=== PATIENT | female | born 1990 | race Caucasian/White ===

== ENCOUNTER 2022-01-19 17:20 | Emergency (ER) | payer OTHER, SELFPAY ==
[2022-01-19 17:21] VITALS: BP 129/90; PULSE 110; RESP 16; TEMP 36.8; O2SAT 97; BMI 26.8
[2022-01-19] MEDS: LORazepam 1 MG Tablet 2 MG PO (18:21)
--- NOTE | 2022-01-19 18:23 | EDS_ITS ---
HPI History of Present Illness Chief Complaint: Anxiety Informant: patient Narrative Narrative: Patient states she has been having worsening anxiety over the last month or so. She has a history of anxiety but is no longer on any medications. She states if she starts thinking about something too much or is under stress the anxiety really increases. She was at work today and it just got too much. 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 She has a primary physician but has not yet made contact to be seen. She does not have a counselor or psychiatrist now. She is not suicidal or homicidal. When the symptoms are bad she feels like she is smothering. No recent travel, surgery, immobilization, personal or family history of DVT or PE. No pleuritic pain. [facility] Medical History Anxiety Home Medications hydroxyzine pamoate 25 mg capsule 50 mg PO TID PRN PRN Anxiety #30 caps 01/19/22 [Rx Last Taken Unknown] Allergy/AdvReac Type Severity Reaction Status Date / Time No Known Allergies Allergy Verified 01/19/22 17:21 Social History Smoking Status: Unknown if ever smoked ROS ROS ED Constitutional Constitutional ED: Denies fever(s) or subjective Eyes Eyes: Denies blurry vision, change in vision or diplopia ENT ENT ED: Denies rhinorrhea Cardiovascular Cardiovascular: Reports palpitations; Denies chest pain or racing heartbeat Respiratory/Chest Respiratory/Chest: Reports other Details: Smothering feeling at times. ; Denies cough Gastrointestinal Gastrointestinal: Denies nausea or vomiting Genitourinary Genitourinary ED: Denies dysuria Musculoskeletal Musculoskeletal: Denies arthralgias or myalgias Integumentary Denies rash Neurologic Neurologic: Denies headache(s) or paresthesias Psychiatric Psychiatric: Reports anxiety; Denies suicidal ideation or suicidal thoughts Endocrine Endocrinology: Denies polydipsia or polyuria Hematologic/Lymphatic Hematologic/Lymphatic: Denies anemia Allergic/Immunologic Allergic/Immunologic ED: Denies urticaria EXAM Physical Exam Const Vital Signs: 01/19/22 17:21 Temperature 98.3 F Temperature Source Temporal Pulse Rate 110 H Respiratory Rate 16 Blood Pressure 129/90 H Blood Pressure Mean 103 Pulse Ox 97 Oxygen Delivery Method Room Air Positive well nourished and well developed Constitutional Narrative: Patient is pulled her self into a bit of a ball. She is sitting with the legs and knees pulled up. She is tearful. But she is very cooperative. General Appearance ED: well developed HEENT Reports moist mucous membranes Eyes PERRL and EOMs intact bilaterally Chest Wall inspection of chest normal Resp normal respiratory effort and clear to auscultation bilaterally Cardio regular rate and regular rhythm Rate: Negative for bradycardia or tachycardic GI normal to inspection, nondistended, normoactive bowel sounds, non-tender and non-distended Palpation: soft Back/Spine no CVA tenderness Extremity normal to inspection General Extremety ED: Negative for edema General Extremity: Negative for edema Neuro oriented x3 Sensorium / Orientation: alert; Negative for lethargic or stuporous Psych Attitude: No agitated Mood & Affect: anxious and tearful Skin no rashes or lesions noted MDM MDM MDM Narrative Medical decision making narrative: Patient is feeling better after Ativan. This patient has been having symptoms on and off for a while. They occur with stress. She has a long history of anxiety. She has not been on meds for a long time. She has been on Prozac Zoloft and 1 other unknown meds but its been many years. I encouraged her to call her physician. I will write for some hydroxyzine. She is not suicidal or homicidal. Her exam is normal. Her lungs are clear. Heart is regular at this time. There is no indication of anemia. I do not think x-rays and blood work are going to add to this case. Discharge Plan Triage Chief Complaint: Anxiety ED Provider: Ky Carlin Dx/Rx/DC Orders Clinical Impression: Anxiety, Panic attack Instructions: ED Anxiety Reaction, ED Panic Attack Prescriptions: New hydroxyzine pamoate [hydroxyzine pamoate] 25 mg capsule 50 mg PO TID PRN PRN (Reason: Anxiety) Qty: 30 0RF Primary Care Provider: Krish Vann Referrals: Krish Vann MD [Primary Care Provider] - As soon as possible Disposition Disposition: Home, Self Care
[2022-01-19 20:14] VITALS: BP 110/70; PULSE 74; RESP 18; O2SAT 98
== END 2022-01-19 20:15 | disposition home or self-care (01) ==
PROVIDERS: Emergency Provider Emergency Medicine; PCP Family Medicine; Visit Provider Emergency Medicine
DX: F41.0 Panic disorder [episodic paroxysmal anxiety] (principal)
CPT/HCPCS: 99284

== ENCOUNTER 2022-03-25 07:12 | Emergency (ER) | payer OTHER, SELFPAY ==
[2022-03-25 07:12] VITALS: BP 131/88; PULSE 96; RESP 16; TEMP 36.4; O2SAT 100; BMI 25.4
--- NOTE | 2022-03-25 08:04 | EX.ED.DYSGE1 ---
HPI History of Present Illness Chief Complaint: Sore Throat Narrative Narrative: 31-year-old female presenting with fatigue which has been ongoing for months. She states he is also treated for anxiety with Prozac by her PCP Dr. Jay. She states that she does not take this because it makes her feel too tired. She reports that she was initially on 20 mg of Prozac and because of her anxiety this was doubled. She states that she eventually called the physician's office because she was getting too fatigued and she was sleeping in the parking lot and she was told to go back down to 20 mg. She states she quit taking this about a week ago. She complains of sore throat which has been ongoing for months. She does [place] having any fever, chills, cough. She states that she ate chicken and garlic bread last evening and was able to swallow this without difficulty. She does not know she has a history of acid reflux but does report that her throat cole. She has not tried anything for this. She states that she was previously concerned about her thyroid levels given her fatigue and had outpatient lab work ordered but she never went to get the blood work because she states that they they offered this she had to spanish moss picker her son. She never called back the office to set up an appointment for another blood draw. [facility] Medical History Anxiety Home Medications hydroxyzine pamoate 25 mg capsule 50 mg PO TID PRN PRN Anxiety #30 caps 01/19/22 [Rx Last Taken Unknown] Allergy/AdvReac Type Severity Reaction Status Date / Time No Known Allergies Allergy Verified 03/25/22 07:15 Social History Smoking Status: Unknown if ever smoked ROS ROS ED Constitutional Constitutional ED: Reports other Details: Generalized fatigue ; Denies chills or fever(s) Eyes Eyes: Denies blurry vision or change in vision ENT ENT ED: Reports sore throat; Denies rhinorrhea Cardiovascular Cardiovascular: Denies chest pain or palpitations Respiratory/Chest Respiratory/Chest: Denies cough Gastrointestinal Gastrointestinal: Denies abdominal pain, nausea or vomiting Genitourinary Genitourinary ED: Denies dysuria or hematuria Musculoskeletal Musculoskeletal: Denies arthralgias or back pain Integumentary Denies abscess or Abrasions Neurologic Neurologic: Denies headache(s) or paresthesias Psychiatric Psychiatric: Reports anxiety; Denies suicidal ideation or suicidal thoughts Endocrine Endocrinology: Denies cold intolerance or heat intolerance EXAM Physical Exam Const Vital Signs: 03/25/22 07:12 Temperature 97.5 F L Temperature Source Temporal Pulse Rate 96 Respiratory Rate 16 Blood Pressure 131/88 H Blood Pressure Mean 102 Pulse Ox 100 Oxygen Delivery Method Room Air Positive well nourished General Appearance ED: NAD HEENT Reports normocephalic, head/scalp atraumatic and moist mucous membranes Face and Sinus: normal facial exam Nose: external nose normal, nares normal and nasal mucous membranes and turbinates normal External Ear: external ears normal Mouth ED: Yes oral and palatal mucosa normal, Yes lips normal, Yes tongue normal, Yes salivary gland normal, Yes moist mucous membranes normal, No drooling, No muffled voice, No trismus and No restricted motion Mouth: oral and palatal mucosa normal, lips normal, tongue normal, salivary gland normal, No drooling, No muffled voice, No trismus and No restricted motion Throat: posterior oropharynx normal; Negative for hoarseness Eyes PERRL and EOMs intact bilaterally Neck no lymphadenopathy General: normal visual inspection and trachea midline; Negative for anterior neck swelling, JVD or submandibular swelling Thyroid: thyroid normal Resp normal respiratory effort Cardio regular rate and regular rhythm GI normal to inspection, nondistended, normoactive bowel sounds Neuro oriented x3 and CN's II-XII intact bilaterally Sensorium / Orientation: alert Motor Exam: strength 5/5 throughout Psych mental status grossly normal Skin no rashes or lesions noted and no wounds General Skin Exam: Negative for jaundice MDM MDM MDM Narrative Medical decision making narrative: Patient presenting with complaints of generalized fatigue and feeling more sleepy over the last several months. She does report that she supposed to be on Prozac for anxiety and states she is not taking this because it makes her tired. She previously had lab work ordered in office which she never followed up for. She is concerned today about thyroid issues. On examination her thyroid feels normal. Trachea midline. There is no masses. Oropharynx is patent without stridor. No exudates. Tongue and sublingual area normal. Lips are normal. Vital signs are stable and she is afebrile. She is complaining of throat burning and trouble with eating because it causes pain. I asked her if she had a history of acid reflux and offered to treat her symptomatically for acid reflux but she declines. I also offered to test her for strep throat although I did addictions counselor assistant her throat looks normal and she does not have any history of fevers. Associated tonsillar exudates or erythema. I did offer to check a thyroid level for her but at this point the patient became angry and got up and left the room. She states I want to go. I did tell her that I offered her several options but she continues to want to leave. It is unclear why. Impression: 1. Sore throat 2. Fatigue Lab Data Attestation: I reviewed the patient's lab results. Discharge Plan Triage Chief Complaint: Sore Throat ED Provider: Curt Mujica Dx/Rx/DC Orders Prescriptions: No Action hydroxyzine pamoate [hydroxyzine pamoate] 25 mg capsule 50 mg PO TID PRN PRN (Reason: Anxiety) Qty: 30 0RF Primary Care Provider: Krish Vann Referrals: Krish Vann MD [Primary Care Provider] -
== END 2022-03-25 08:39 | disposition left against medical advice (07) ==
PROVIDERS: Emergency Provider Student in an Organized Health Care Education/Training Program; PCP Family Medicine; Visit Provider Student in an Organized Health Care Education/Training Program
DX: J02.9 Acute pharyngitis, unspecified (principal); F41.9 Anxiety disorder, unspecified; R53.83 Other fatigue
CPT/HCPCS: 99282